=== PATIENT | male | born 1960 | race Hispanic/Latino ===

== ENCOUNTER → 2023-06-11 | Outpatient (CLI) | payer BC, SELFPAY ==
[~2023-06-11] MED LIST: AMLO-74 PO; EZET10TA81 PO; FENO48TA10 PO; INSLAN SQ; SIMV-43 PO; TRAM50TA4 PO; TYL3 PO
== END | disposition home or self-care (01) ==
LOC: RAH 07:10
PROVIDERS: ATTEND Internal Medicine
DX: R11.0 Nausea (principal); R10.13 Epigastric pain
CPT/HCPCS: 78264; A9541